=== PATIENT | male | born 1965 | race Caucasian/White ===

== ENCOUNTER 2019-01-18 20:45 | Emergency (ER) | payer BC ==
[2019-01-18] MEDS: HYDROCODONE/APAP (10/325) TAB PO (21:42)
[2019-01-18] MEDS: NICARDipine HCL 30 MG CAPSULE PO (21:42)
[2019-01-18] MEDS: FLUORESCEIN STRIP BOTH EYES (21:43)
[2019-01-18] MEDS: TETRACAINE 0.5% 4 ML OPH BOTH EYES (21:43)
[2019-01-18] MEDS: DIPHTH/TET/ACEL PERTUSS (ADULT) 0.5 ML VIAL IM* (21:43)
[2019-01-18] MEDS: ERYTHROMYCIN 1 GM OPH OINT BOTH EYES (22:32)
== END 2019-01-18 22:48 | disposition home or self-care (01) ==
LOC: E/R 20:45 → FTE 22:48
DX: T15.02XA Foreign body in cornea, left eye, initial encounter (principal); X58.XXXA Exposure to other specified factors, initial encounter; Y92.9 Unspecified place or not applicable; Z23 Encounter for immunization
CPT/HCPCS: 65222; 90471; 90715; 99283-25